=== PATIENT | male | born 1950 | race Caucasian/White ===

== ENCOUNTER → 2019-04-25 09:55 | Outpatient (BNVA) | payer MEDICARE, SELFPAY | PROVIDERS: PCP Urology; Referring Provider Nurse Practitioner Family; Visit Provider Podiatrist Foot & Ankle Surgery | DX: D16.31 Benign neoplasm of short bones of right lower limb (principal); M79.671 Pain in right foot | CPT/HCPCS: 73630 ==

== ENCOUNTER → 2019-09-26 09:20 | Outpatient (BNVA) | payer MEDICARE, SELFPAY | PROVIDERS: PCP Urology; Referring Provider Nurse Practitioner Family; Visit Provider Nurse Practitioner Family | DX: M79.662 Pain in left lower leg (principal); M25.562 Pain in left knee | CPT/HCPCS: 73562 ==

== ENCOUNTER → 2020-01-03 15:34 | Outpatient (BNVA) | payer MEDICARE, SELFPAY | PROVIDERS: PCP Urology; Visit Provider Nurse Practitioner Family | DX: Z11.59 Encounter for screening for other viral diseases (principal) | CPT/HCPCS: 87635 ==

== ENCOUNTER 2023-10-06 13:36 | Outpatient (CLI) | payer MEDICARE, SELFPAY ==
--- NOTE | 2023-10-06 13:37 | MR_ITS ---
WS: [id number] MRI LUMBAR SPINE NONCONTRAST TECHNIQUE: Sagittal T1, T2 and STIR imaging. Axial T1 and T2 imaging. CLINICAL INFORMATION: LOW BACK PAIN/RADICULOPATHY,LUMBAR/SPONDYLOLISTHESIS COMPARISON: MRI 2014 FINDINGS: Mild lumbar curve. No acute compression. Disc space narrowing throughout the lumbar spine. Remote saira earing hemilaminectomies RIGHT L3-L4 and L4-L5. L1-L2: Mild annular bulging. Mild facet arthropathy. Mild RIGHT and no significant LEFT foraminal alice rowing. L2-L3: Mild disc bulge with osteophytic ridging. Mild central canal stenosis with narrowing of the aviles barticular recess bilaterally. Moderate facet arthropathy. Foramen are patent. L3-L4: Slight anterolisthesis. Disc space narrowing. Narrowing of the LEFT subarticular recess. Moder ate facet arthropathy worse on the LEFT. Moderate LEFT and no significant RIGHT foraminal narrowing. L4-L5: Mild disc osteophyte complex with endplate ridging. Impingement on the LEFT subarticular reces s and traversing LEFT L5 nerve root. Mild facet arthropathy. L5-S1: Shallow central protrusion. Slight impingement traversing LEFT greater than RIGHT S1 nerve malu ts. Mild LEFT and no significant RIGHT foraminal narrowing. Mild facet arthropathy. Visualized pelvic bony structures: Normal. Paravertebral soft tissues: Normal. 10 mm RIGHT renal cyst. MR/MR lumbar spine wo con* [id number] IMPRESSION: 1. Mild lumbar curve. No acute compression. 2. Moderate central canal stenosis L2-3 with LEFT to RIGHT narrowing of the th ecal sac progressed compared to previous. 3. Impingement LEFT L3-4 subarticular recess with mild central canal stenosis similar to previous. Moderate LEFT facet arthropathy at this level. Moderate LE FT foraminal narrowing. 4. Impingement LEFT L4-5 subarticular recess similar to previous. 5. Tiny central disc protrusion L5-S1 slightly impinges the traversing LEFT S1 nerve root in the subarticular recess. This is similar to previous. 6. Mild RIGHT L1-2, LEFT L2-3, moderate LEFT L3-4, and mild LEFT L4-5 foramina l narrowing.
== END 2023-10-06 13:37 | disposition home or self-care (01) ==
LOC: RAD 13:36
PROVIDERS: PCP Nurse Practitioner Family; Visit Provider Nurse Practitioner Family
DX: M43.10 Spondylolisthesis, site unspecified (principal); M54.16 Radiculopathy, lumbar region; M54.50 Low back pain, unspecified
CPT/HCPCS: 72148

== ENCOUNTER 2024-12-29 11:39 | Outpatient (CLI) | payer MEDICARE, SELFPAY ==
--- NOTE | 2024-12-29 11:52 | XR_ITS ---
WS: [id number] Exam: XR hip LT 2-3V wo/w pel* [id number] Date/Time of Exam: 12/29/2024 11:53 AM Reason For Exam: PAIN IN THE LEFT HIP No fracture or dislocation. Minimal DJD of the acetabulum. The joint compartment is relatively well-maintained. There is calcification superimposing the LEFT hip that is probably vascular. XR/XR hip LT 2-3V wo/w pel* [id number] IMPRESSION: 1. Mild DJD. No fracture.
== END 2024-12-29 11:40 | disposition home or self-care (01) ==
PROVIDERS: PCP Nurse Practitioner Family; Visit Provider Nurse Practitioner Family
DX: M25.552 Pain in left hip (principal); M16.12 Unilateral primary osteoarthritis, left hip
CPT/HCPCS: 73502